=== PATIENT | male | born 1960 | race American Indian/Alaskan Native ===

== ENCOUNTER 2016-07-03 09:23 | Outpatient (CLI) | payer OTHER ==
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
== END 2016-07-03 09:24 | disposition home or self-care (01) ==
LOC: CT 09:23
PROVIDERS: ATTEND Family Medicine Adult Medicine
DX: J98.11 Atelectasis (principal); I70.0 Atherosclerosis of aorta; I25.10 Atherosclerotic heart disease of native coronary artery without angina pectoris; Q79.1 Other congenital malformations of diaphragm; R10.9 Unspecified abdominal pain
CPT/HCPCS: 74176

== ENCOUNTER 2020-08-29 09:52 | Outpatient (CLI) | payer BC ==
[2020-08-29 10:57] LABS: Blood Urea Nitrogen 8 mg/dL (9-20)
--- NOTE | 2020-08-29 12:48 | Cat Scan Report ---
CT ABDOMEN AND PELVIS WITH CONTRAST INDICATION / CLINICAL INFORMATION: . Hematuria TECHNIQUE: Axial CT images were obtained through the abdomen and pelvis after 100 cc Omnipaque 300 milligrams pe rcent IV contrast. All CT scans at this location are performed using CT dose reduction for ALARA by means of automated exposure control. COMPARISON: July 03, 2016 FINDINGS: LOWER CHEST: No significant abnormality. LIVER: No significant abnormality. GALLBLADDER: No significant abnormality. BILE DUCTS: No significant abnormality. PANCREAS: No significant abnormality. SPLEEN: No significant abnormality. ADRENALS: No significant abnormality. RIGHT KIDNEY and URETER: Persistent unchanged right renal cyst. LEFT KIDNEY and URETER: Persistent unchanged left renal cyst STOMACH and SMALL BOWEL: No significant abnormality. COLON: No significant abnormality. APPENDIX: No significant abnormality. PERITONEUM: No free fluid. No free air. No fluid collection. LYMPH NODES: No significant adenopathy. AORTA and ARTERIES: Minimum calcified atherosclerotic plaque abdominal aorta and iliac arteries IVC and VEINS: No significant abnormality. URINARY BLADDER: No significant abnormality. REPRODUCTIVE ORGANS: No significant abnormality. ADDITIONAL FINDINGS: None. SKELETAL SYSTEM: Degenerative changes L5-S1 IMPRESSION: 1. No significant abnormality. Signer Name: Rahat Burnett MD Signed: 08/29/2020 12:43 PM Workstation Name: [id number]
== END 2020-08-29 09:53 | disposition home or self-care (01) ==
LOC: CT 09:52
PROVIDERS: ATTEND Urology
DX: N28.1 Cyst of kidney, acquired (principal); I70.0 Atherosclerosis of aorta; I70.8 Atherosclerosis of other arteries; R31.29 Other microscopic hematuria; M47.817 Spondylosis without myelopathy or radiculopathy, lumbosacral region
CPT/HCPCS: 36415; 74178; 82565; 84520; Q9967

== ENCOUNTER 2020-12-25 07:35 | Emergency (ER) | payer BC ==
[2020-12-25 08:12] VITALS: BP 147/85
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
== END 2020-12-25 09:09 | disposition home or self-care (01) ==
LOC: ED 07:35
DX: M54.5 Low back pain (principal); I10 Essential (primary) hypertension; F17.200 Nicotine dependence, unspecified, uncomplicated; Z79.899 Other long term (current) drug therapy; V49.59XA Passenger injured in collision with other motor vehicles in traffic accident, initial encounter; Y92.410 Unspecified street and highway as the place of occurrence of the external cause; Y93.89 Activity, other specified; Y99.8 Other external cause status
CPT/HCPCS: 72100; 99283

== ENCOUNTER 2021-11-14 01:08 | Emergency (ER) | payer BC, OTHER ==
[2021-11-14] MEDS ORDERED: FAMOTIDINE 20 MG/2 ML INJ IV ONE (01:32)
[2021-11-14] MEDS ORDERED: methylPREDNISolone Sod Succinate 125 MG/2 ML INJ IV ONE (01:32)
[2021-11-14] MEDS ORDERED: diphenhydrAMINE 50 MG/ML VIAL IV ONE (01:32)
--- NOTE | 2021-11-14 02:08 | Emergency Department Report ---
ED Allergic Reaction HPI - General Chief complaint: Allergic Reaction Stated complaint: ALLERGIC REACTION Time Seen by Provider: 11/14/21 01:19 Source: patient Mode of arrival: Ambulatory Limitations: No Limitations - History of Present Illness Initial Comments: Patient is 61 years old male with history of hypertension on lisinopril. Patient presented with sudden onset of upper lip swelling. Patient denied any difficulty swallowing or difficulty breathing. He denied any other swelling or rash. MD Complaint: allergic reaction, facial swelling -: Sudden, This morning Exposure: medication Symptoms: lip swelling. denies: itching, facial swelling, difficulty breathing, orolingual swelling, hoarseness, syncopy, dizziness, nausea, vomiting, other, abdominal pain Treatment Prior to Arrival: none Previous Allergy History: none - Related Data Previous Rx's Medication Instructions Recorded Last Taken Type Naproxen [EC-Naprosyn] 500 mg PO BID PRN #20 tablet. 12/25/20 Unknown Rx methocarbamoL [Methocarbamol] 500 mg PO BID PRN #14 tablet 12/25/20 Unknown Rx Allergies Allergy/AdvReac Type Severity Reaction Status Date / Time No Known Allergies Allergy Unverified 07/03/16 09:23 ED Review of Systems ROS: Stated complaint: ALLERGIC REACTION Other details as noted in HPI Comment: All other systems reviewed and negative Constitutional: denies: chills, fever Respiratory: denies: cough, shortness of breath, SOB with exertion, SOB at rest Cardiovascular: denies: chest pain, palpitations, dyspnea on exertion Gastrointestinal: denies: abdominal pain, nausea, vomiting, diarrhea, constipation, hematemesis, melena, hematochezia Musculoskeletal: denies: back pain Neurological: denies: headache, weakness, numbness, paresthesias, confusion ED Past Medical Hx - Past Medical History Hx Hypertension: Yes - Social History Smoking Status: Current Every Day Smoker Substance Use Type: None - Medications Home Medications: Home Medications Medication Instructions Recorded Confirmed Last Taken Type Naproxen [EC-Naprosyn] 500 mg PO BID PRN #20 tablet. 12/25/20 Unknown Rx methocarbamoL [Methocarbamol] 500 mg PO BID PRN #14 tablet 12/25/20 Unknown Rx ED Physical Exam - General Limitations: No Limitations General appearance: alert, in no apparent distress - Head Head exam: Present: atraumatic, normocephalic, normal inspection - Eye Eye exam: Present: normal appearance - ENT ENT exam: Present: other (Upper lip swelling. Oropharyngeal is clear with no swelling.) - Neck Neck exam: Present: normal inspection, full ROM. Absent: tenderness, meningismus, lymphadenopathy, thyromegaly - Respiratory Respiratory exam: Present: normal lung sounds bilaterally - Cardiovascular Cardiovascular Exam: Present: regular rate, normal rhythm, normal heart sounds - GI/Abdominal GI/Abdominal exam: Present: soft, normal bowel sounds. Absent: distended, tenderness, guarding, rebound, rigid, organomegaly, mass, bruit, pulsatile mass, hernia - Extremities Exam Extremities exam: Present: normal inspection, full ROM, normal capillary refill. Absent: tenderness - Back Exam Back exam: Present: normal inspection, full ROM. Absent: CVA tenderness (R), CVA tenderness (L) - Neurological Exam Neurological exam: Present: alert, oriented X3, CN II-XII intact, normal gait, reflexes normal. Absent: motor sensory deficit - Psychiatric Psychiatric exam: Present: normal mood - Skin Skin exam: Present: warm, intact, normal color ED Course Vital Signs 11/14/21 11/14/21 11/14/21 01:11 01:19 01:31 Temperature 98.8 F Pulse Rate 74 68 70 Respiratory 18 22 21 Rate Blood Pressure 166/103 156/93 O2 Sat by Pulse 95 99 Oximetry 11/14/21 11/14/21 11/14/21 01:45 02:01 02:15 Temperature Pulse Rate 67 70 75 Respiratory 21 23 20 Rate Blood Pressure 156/93 161/92 161/92 O2 Sat by Pulse 98 97 98 Oximetry 11/14/21 11/14/21 11/14/21 02:31 02:45 03:01 Temperature Pulse Rate 69 68 65 Respiratory 21 13 17 Rate Blood Pressure 161/92 161/92 159/93 O2 Sat by Pulse 98 99 97 Oximetry 11/14/21 11/14/21 11/14/21 03:15 03:31 03:45 Temperature Pulse Rate 68 65 67 Respiratory 19 20 19 Rate Blood Pressure 159/93 159/93 159/93 O2 Sat by Pulse 97 98 98 Oximetry 11/14/21 11/14/21 11/14/21 04:01 04:15 04:28 Temperature Pulse Rate 69 67 Respiratory 19 19 Rate Blood Pressure 161/94 161/94 O2 Sat by Pulse 97 99 99 Oximetry ED Medical Decision Making - Medical Decision Making Patient is 61 years old male with history of hypertension on lisinopril. Patient presented with sudden onset of upper lip swelling. Patient denied any difficulty swallowing or difficulty breathing. He denied any other swelling or rash. Patient remained stable in the ER with a stable vital sign. Patient observed in the emergency room for approximately 5 hours. Patient still denying any difficulty swallowing or difficulty breathing. Swelling is mainly limited to the upper lips. Patient advised to discontinue lisinopril I will change patient medication to Norvasc 5 mg daily and patient also given prescription for Benadryl, Pepcid and prednisone and advised to follow-up with his primary care physician in 2 to 3 days and to return to the ER immediately if you start having any difficulty breathing or difficulty swallowing. Critical care attestation.: If time is entered above; I have spent that time in minutes in the direct care of this critically ill patient, excluding procedure time. ED Disposition Clinical Impression: Angioedema Disposition: 01 HOME / SELF CARE / HOMELESS Is pt being admited?: No Condition: Stable Instructions: Angioedema, [id number] Referrals: PRIMARY CARE, [Referring] - 3-5 Days
[2021-11-14 04:30] VITALS: BP 161/94
== END 2021-11-14 10:51 | disposition home or self-care (01) ==
LOC: ED 01:08
DX: T78.3XXA Angioneurotic edema, initial encounter (principal); T88.9XXA Complication of surgical and medical care, unspecified, initial encounter; Y84.9 Medical procedure, unspecified as the cause of abnormal reaction of the patient, or of later complication, without mention of misadventure at the time of the procedure; Y82.9 Unspecified medical devices associated with adverse incidents; Y92.89 Other specified places as the place of occurrence of the external cause
CPT/HCPCS: 96374; 96375; 99282; J1200; J2930; J3490